=== PATIENT | male | born 1975 | race Caucasian/White ===

== ENCOUNTER → 2016-08-09 | Outpatient (CLI) | payer OTHER ==
[~2016-08-09] MED LIST: BSP15 PO; CETI10TA84 PO; FLUT0.15 NAE; LISI20TA3 PO; MELO7.5T5 PO; PARO1TAB29 PO; PRVC20 PO; TRAZ50TA35 PO
== END | disposition home or self-care (01) ==
LOC: C.RDSM 13:58
PROVIDERS: ATTEND Family Medicine Sports Medicine
DX: M79.641 Pain in right hand (principal)

== ENCOUNTER → 2016-09-06 | Outpatient (CLI) | payer OTHER | END | disposition home or self-care (01) | LOC: C.RDSM 12:06 | PROVIDERS: ATTEND Family Medicine Sports Medicine | DX: S62.91XA Unspecified fracture of right hand, initial encounter for closed fracture (principal); X58.XXXA Exposure to other specified factors, initial encounter ==

== ENCOUNTER 2017-02-28 10:23 | Emergency (ER) | payer OTHER ==
[~2017-02-28] VITALS: Ht 172.7 cm; Wt 91.5 kg
[2017-02-28 10:25] VITALS: TEMP 36.7; Ht 172.7 cm; Wt 91.5 kg
--- NOTE | 2017-02-28 10:41 | EMERGENCY ROOM VISIT NOTE ---
History Report prepared by [facility]: Renetta Coffman Under the Supervision of: Dr. Morales Mena D.O. First contact with patient: 10:30 Chief Complaint: LEG PAIN,LEG INJURY Stated Complaint: LEFT LEG PAIN R/O DVT History of Present Illness The patient is a 41 year old male who presents to the Emergency Room with complaints of worsening left leg pain for the past 5 days. He reports he got a Kenalog injection in his left leg 5 days ago, for a history of a torn meniscus since 2013, and since then, has experienced worsening left leg pain. He rates his current discomfort as a 6/10. Walking and movement worsen his discomfort. The patient denies any recent chest pain or shortness of breath. 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 A total of 10 systems reviewed and were otherwise negative. Past Medical & Surgical Medical Problems: (1) History of torn meniscus of left knee (2) Hypertension (3) Rheumatoid arthritis (4) Seasonal allergies Social History Smoking Status: Current Every Day Smoker Smokeless Tobacco Use: No Alcohol Use: none Drug Use: none Marital Status: single Housing Status: other ([employer]) Occupation Status: unemployed Current/Historical Medications Scheduled Buspirone HCl (Buspirone HCl), 30 MG PO HS Cetirizine (Zyrtec), 10 MG PO DAILY Fluticasone Propionate (Nasal) (Flonase Allergy Relief), 1 SPRAY TRISTEN HS Lisinopril (Prinivil), 20 MG PO DAILY Meloxicam (Mobic), 7.5 MG PO BID Paroxetine (Paxil), 40 MG PO HS Pravastatin Sod (Pravastatin Sodium), 20 MG PO HS Trazodone Hcl (Trazodone), 50 MG PO HS Allergies Coded Allergies: Peanut (Unverified Allergy, Intermediate, UNKNOWN, 02/28/17) Peanut-containing Drug Products (Unverified Allergy, Intermediate, UNKNOWN , 02/28/17) Penicillins (Unverified Allergy, Intermediate, UNKNOWN, 02/28/17) Physical Exam Vital Signs Date Time Temp Pulse Resp B/P (MAP) Pulse Ox O2 Delivery O2 Flow Rate FiO2 02/28/17 13:00 80 16 124/74 97 02/28/17 10:25 36.7 66 18 129/87 100 Room Air Physical Exam GENERAL: Patient is awake, alert, in no acute distress, patient is resting comfortably and showing no signs of anxiety EYES: The conjunctivae are clear. The pupils are round and reactive. EARS, NOSE, MOUTH AND THROAT: The nose is without any evidence of any deformity. Mucous membranes are moist tongue is midline NECK: The neck is nontender and supple. RESPIRATORY: Normal respiratory effort is noted there is no evidence of wheezing rhonchi or rales CARDIOVASCULAR: Regular rate and rhythm noted there no murmurs rubs or gallops normal S1 normal S2 GASTROINTESTINAL: The abdomen is soft. Bowel sounds are present in all quadrants. Abdomen is nontender MUSCULOSKELETAL/EXTREMITIES: There is no evidence of gross deformity full range of motion is noted in the hips and shoulders SKIN: There was no pedal edema, no calf tenderness, tenderness behind the left knee with mild fullness, no erythema noted. NEUROLOGIC: Patient is awake alert and oriented x3 Medical Decision & Procedures ER Provider Diagnostic Interpretation: Radiology results as stated below per my review and radiologist interpretation: LEFT LOWER EXTREMITY VENOUS DOPPLER HISTORY: Left knee pain. COMPARISON STUDY: None. FINDINGS: There is normal compressibility, flow, and augmentation within the left lower extremity deep venous system. IMPRESSION: No DVT within the left lower extremity. Electronically signed by: Boston Hill M.D. 02/28/2017 1:04 PM ED Course 1034: The patient was evaluated in room C8. A complete history and physical examination were performed. 1350: I reevaluated the patient. He is feeling well. I discussed his results and discharge instructions and he verbalized complete understanding and agreement. Medical Decision Prior records reviewed and summarized above. Triage Nursing notes reviewed. The patient's history was concerning for swelling and pain in the leg. Differential diagnosis: Etiologies such as DVT, musculoskeletal, infection, joint effusion, trauma, lymphedema, idiopathic, CHF, as well as others were entertained. The patient is a 41-year-old male who presented to the emergency department for left knee pain which was in the popliteal fossa. The patient had a recent injection into his knee. There is no redness or decreased range of motion. The knee was not warm. He was sent for a Doppler to rule out DVT. The Doppler was negative. I discussed the radiographic studies with the patient. He was encouraged to follow-up with the skilled nursing physician and have a repeat Doppler in one week if symptoms do not improve. Otherwise she was encouraged to continue all medications as prescribed and rest. Medication Reconcilliation Current Medication List: was personally reviewed by me Blood Pressure Screening Patient's blood pressure: Normal blood pressure Blood pressure disposition: Did not require urgent referral Impression Primary Impression: Left knee pain Additional Impression: Swelling of left knee joint Scribe Attestation The scribe's documentation has been prepared under my direction and personally reviewed by me in its entirety. I confirm that the note above accurately reflects all work, treatment, procedures, and medical decision making performed by me. Departure Information Dispostion Home / Self-Care Referrals Chaim MCDONALD (PCP) Patient Instructions Knee Pain, My [facility] Additional Instructions Follow-up with your family doctor soon as possible. Continue all medications as prescribed. If symptoms do not improve he may require a referral to an orthopedic physician. Problem Qualifiers Primary Impression: Left knee pain Chronicity: unspecified Qualified Codes: M25.562 - Pain in left knee
[2017-02-28] MEDS ORDERED: BSP15 PO (11:27)
[2017-02-28] MEDS ORDERED: PRVC20 PO (11:27)
[2017-02-28] MEDS ORDERED: LISI20TA3 PO (11:27)
[2017-02-28] MEDS ORDERED: PARO1TAB29 PO (11:27)
[2017-02-28] MEDS ORDERED: MELO7.5T5 PO (11:27)
[2017-02-28] MEDS ORDERED: FLUT0.15 NAE (11:27)
[2017-02-28] MEDS ORDERED: CETI10TA84 PO (11:27)
[2017-02-28] MEDS ORDERED: TRAZ50TA35 PO (11:27)
[2017-02-28 13:00] VITALS: BP 124/74; PULSE 80; O2SAT 97
--- NOTE | 2017-02-28 13:05 | DIAGNOSTIC IMAGING REPORT ---
LEFT LOWER EXTREMITY VENOUS DOPPLER HISTORY: Left knee pain. COMPARISON STUDY: None. FINDINGS: There is normal compressibility, flow, and augmentation within the left lower extremity deep venous system. IMPRESSION: No DVT within the left lower extremity. Electronically signed by: Boston Hill M.D. 02/28/2017 1:04 PM Dictated Date/Time: 02/28/2017 1:03 PM
== END 2017-02-28 13:28 | disposition home or self-care (01) ==
LOC: C.EDC 11:40
DX: M25.562 Pain in left knee (principal); M25.462 Effusion, left knee; I10 Essential (primary) hypertension; M06.9 Rheumatoid arthritis, unspecified; J30.2 Other seasonal allergic rhinitis; F17.210 Nicotine dependence, cigarettes, uncomplicated; Z79.899 Other long term (current) drug therapy

== ENCOUNTER → 2017-03-10 | Outpatient (CLI) | payer OTHER ==
--- NOTE | 2017-03-10 15:53 | DIAGNOSTIC IMAGING REPORT ---
BILATERAL LOWER EXTREMITY VENOUS DOPPLER HISTORY: LEFT LEG PAIN/SWELLING COMPARISON STUDY: Duplex venous study 02/28/2017. FINDINGS: There is normal compressibility, flow, and augmentation within the left lower extremity deep venous system. IMPRESSION: No sonographic evidence of deep venous thrombosis within the left lower extremity. Electronically signed by: Raheem Rick M.D. 03/10/2017 3:52 PM Dictated Date/Time: 03/10/2017 3:51 PM
== END | disposition home or self-care (01) ==
LOC: C.ULTR 15:25
PROVIDERS: ATTEND Family Medicine
DX: M79.606 Pain in leg, unspecified (principal); M79.89 Other specified soft tissue disorders